=== PATIENT | female | born 1985 | race African-American/Black ===

== ENCOUNTER 2020-02-28 07:53 | Outpatient (CLI) | payer BC ==
--- NOTE | 2020-02-28 10:44 | MRI ---
MRI OF THE LEFT KNEE WITHOUT CONTRAST: INDICATION: History of fall with concern for ACL and lateral collateral ligament injury. COMPARISON: Prior MRI of the left knee dated 01/02/2014. FINDINGS: There is postprocedural change of a prior partial medial meniscectomy and ACL reconstruction. The AC L graft is completely disrupted. The PCL, MCL, and the LCLC and extensor mechanism are intact. There is diffuse chondral thinning involving the femorotibial compartments, medial greater than later al. There is a full-thickness articular cartilage defect involving the central and medial aspect of the medial femoral condyle measuring 6 mm. There are small marginal osteophytes affecting the major compartments. There is now a near full-thickness 1 mm articular cartilage fissure involving the cent ral trochlea. There is a new horizontally oriented tear involving the anterior junction and body of the medial meni scus. There is no discrete evidence of re-tear involving the lateral meniscus. No popliteal cyst is evident. IT band and popliteus appear within normal limits. IMPRESSION: 1. Complete anterior cruciate ligament graft tear. 2. Partial meniscectomy of the medial meniscus with recurrent horizontally oriented tear involving t he anterior junction and body of the medial meniscus. The lateral meniscus appears intact. 3. The LCLC, medial collateral ligament, posterior cruciate ligament, and extensor mechanism are int act. 4. Early secondary mild osteoarthrosis of the left knee. POS: AH
== END 2020-02-28 07:54 | disposition home or self-care (01) ==
LOC: TBSIIMAG 07:53
PROVIDERS: ATTEND Orthopaedic Surgery
DX: S83.512A Sprain of anterior cruciate ligament of left knee, initial encounter (principal); M23.8X2 Other internal derangements of left knee; S83.242A Other tear of medial meniscus, current injury, left knee, initial encounter; M17.12 Unilateral primary osteoarthritis, left knee; Z98.890 Other specified postprocedural states

== ENCOUNTER 2020-04-04 06:36 | Outpatient (CLI) | payer BC ==
[2020-04-04 14:45] LABS: BHCG - Serum Negative (NEGATIVE); Pregs Control Background? CLEAR/WHITE (CLR/WHITE); Pregs Control Bar Appear? YES (CONTROL BAR)
[2020-04-05 07:47] LABS: SARS-CoV-2 MS2 Positive; SARS-CoV-2 N Gene Negative; SARS-CoV-2 S Gene Negative; SARS-CoV-2 by NAA Not Detected (NotDetected); SARS-CoV-2 orf1ab Negative
== END 2020-04-04 06:37 | disposition home or self-care (01) ==
LOC: LABBT 06:36
PROVIDERS: ATTEND Orthopaedic Surgery
DX: Z01.812 Encounter for preprocedural laboratory examination (principal); S83.511A Sprain of anterior cruciate ligament of right knee, initial encounter; S83.421A Sprain of lateral collateral ligament of right knee, initial encounter; S83.206A Unspecified tear of unspecified meniscus, current injury, right knee, initial encounter; Z20.828 Contact with and (suspected) exposure to other viral communicable diseases
CPT/HCPCS: 84703; 87635; U0003

== ENCOUNTER 2020-06-16 05:52 | Inpatient (IN) | payer BC ==
[2020-06-15 10:32] VITALS: BMI 34.4
[2020-06-16] MEDS ORDERED: Lidocaine 1% (PF) 30 ML VIAL ONE (06:49)
[2020-06-16] MEDS ORDERED: Midazolam HCl 2 mg/2 ml Vial ONE (06:49)
[2020-06-16] MEDS ORDERED: Fentanyl 100 MCG/2 ML VIAL ONE ×6 (06:49→13:55)
[2020-06-16] MEDS ORDERED: traMADol HCl 50 MG TAB PO PRN (07:30)
[2020-06-16] MEDS ORDERED: Ropivacaine 0.2% 550 ML 550 ML NERVE BLCK SCH (07:30)
[2020-06-16] MEDS ORDERED: Zolpidem Tartrate 5 MG TAB PO PRN (07:30)
[2020-06-16] MEDS ORDERED: Vancomycin 1.5 GRAM/300 ML BAG ONE ×2 (08:13→13:37)
[2020-06-16] MEDS ORDERED: Ondansetron PF 4 MG/2 ML Vial ONE (09:51)
[2020-06-16] MEDS ORDERED: Bupivacaine HCl 0.5%/Epinephrine 1:200,000/PF 30 ml Vial ONE (09:51)
[2020-06-16] MEDS ORDERED: PHENYLEPHRINE-NS 100 MCG/ML 10 ML SYRINGE ONE (09:51)
[2020-06-16] MEDS ORDERED: Rocuronium Bromide 10 MG/ML (10ML VIAL) ONE (09:51)
[2020-06-16] MEDS ORDERED: ePHEDrine 50 MG/ML VIAL ONE (09:51)
[2020-06-16] MEDS ORDERED: Dexamethasone 20 MG/5 ML VIAL ONE (09:51)
[2020-06-16] MEDS ORDERED: PROPOFOL 200 MG/20 ML VIAL ONE (09:51)
[2020-06-16] MEDS ORDERED: Ketorolac Tromethamine 30 MG/ML VIAL ONE (09:51)
[2020-06-16] MEDS ORDERED: HYDROcodone/Acetaminophen 7.5/325 mg Tablet PO PRN ×2 (10:56)
[2020-06-16] MEDS ORDERED: Bisacodyl 10 MG SUPP PR PRN (10:56)
[2020-06-16] MEDS ORDERED: diphenhydrAMINE 50 MG CAP PO PRN (10:56)
[2020-06-16] MEDS ORDERED: Acetaminophen 500 MG TAB PO PRN (10:56)
[2020-06-16] MEDS ORDERED: Milk Of Magnesia 30 ML UDCUP PO PRN (10:56)
[2020-06-16] MEDS ORDERED: Meperidine HCl/PF 25 MG/ML VIAL ONE (11:20)
[2020-06-16] MEDS ORDERED: Promethazine HCl 25 MG/ML VIAL SLOW IVP PRN (11:38)
[2020-06-16] MEDS ORDERED: Ondansetron HCl/PF 4 MG/2 ML Vial IVP PRN (11:38)
[2020-06-16] MEDS ORDERED: Promethazine HCl 25 MG/ML VIAL IM PRN (11:38)
[2020-06-16] MEDS ORDERED: Meperidine HCl/PF 25 MG/ML VIAL SLOW IVP PRN (11:38)
[2020-06-16] MEDS: Ketorolac Tromethamine 30 MG/ML VIAL IVP SCH ×2 (15:36→15:37)
[2020-06-16] MEDS: Dextrose 5 %-0.45 % NaCl 1,000 ML IV SCH ×2 (15:36→21:14)
[2020-06-16] MEDS: Ondansetron PF 4 MG/2 ML Vial IVP PRN (15:37)
[2020-06-16] MEDS: CEFAZOLIN 2 GM in Premix Bag 1 BAG IVPB SCH (15:37)
[2020-06-16] MEDS: HYDROcodone/Acetaminophen 10/325 mg Tablet PO PRN ×2 (15:44→19:45)
[2020-06-16] MEDS: Promethazine HCl 25 MG/ML VIAL IM PRN (18:22)
[2020-06-16] MEDS: Famotidine 20 MG TAB PO SCH (19:45)
--- NOTE | 2020-06-16 19:53 | OP ---
DATE OF PROCEDURE: 06/16/2020 PREOPERATIVE DIAGNOSES: 1. Left knee failed revision anterior cruciate ligament reconstruction. 2. 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 POSTOPERATIVE DIAGNOSES: 1. Left knee failed revision anterior cruciate ligament reconstruction. 2. 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 3. Grade 2 and 3 chondromalacia, medial femoral condyle. Small area of grade 4 chondromalacia, lateral femoral condyle, and some grade 2 chondromalacia in the central portion of the trochlea. PROCEDURES PERFORMED: 1. Left knee exam under anesthesia. 2. Left knee arthroscopy with arthroscopically-assisted revision, anterior cruciate ligament reconstruction using allograft Achilles tendon. 3. Open reconstruction of fibular collateral ligament using allograft Achilles tendon. 4. Removal of hardware from the femur and tibia. ASSISTANTS: 1. Ford Jordan MD. 2. Michael Abarca PA-C. Dr. Jordan was present throughout the procedure to include the fibular collateral ligament reconstruction, removal of hardware, the revision ACL reconstruction, and closure of wounds. BLOOD LOSS: 100. ANESTHESIA: The patient had general anesthetic as well as a preoperative block. IMPLANTS: A 7 x 20 metal interference screw on the femur for the ACL reconstruction. A 9 x 30 BioComposite interference screw in the tibial tunnel for the ACL reconstruction, bicortical screw with a spiked washer for backup fixation of the ACL. For the fibular collateral ligament reconstruction, we used a 7 x 20 metal interference screw on the femur. We used a 7 x 20 BioComposite interference screw in the fibular head. COMPLICATIONS: There were no complications. DISPOSITION: She did go to recovery room in stable condition. INDICATIONS: Aminah is a 35-year-old female, who has already had two ACL reconstructions and was found on recent MRI scan to have a torn ligament from her second reconstruction as well as chronic fibular collateral ligament tear. At this time, she wished to undergo revision surgery to stabilize the knee. DESCRIPTION OF PROCEDURE: After all appropriate consent forms were explained and signed, she was taken to the operative room and at this time was given general anesthetic. Once the level of anesthesia was appropriate, exam under anesthesia confirmed a positive Vj, also confirmed varus instability in full extension at 30 degrees of flexion. At this time, tourniquet was placed on left thigh. Leg was then placed in arthroscopic leg christie. The limb was then prepped and draped in standard surgical fashion. The limb was exsanguinated and tourniquet was taken to 300 mmHg. We initially went about our lateral dissection, thus a long lateral incision was made down through skin only. Bovie used to clear any brisk venous bleeding. We then swept the skin flap off the underlying IT band to gain access to our deeper tissues. At this time, we found our biceps femoris muscle tendon unit and we then went about trying to find our peroneal nerve. Proximally 2 cm distal to the end of the fibular head, we used scissor dissection and carefully dissected out the peroneal nerve from there proximally. A vascular loop was then placed around this so we could keep track of the nerve throughout the procedure. Once this was done, we then entered our biceps bursa going approximately 1 cm proximal to the insertion of the biceps tendon onto the fibular head. Once this was cut down, we were able to easily find our inferior collateral ligament attachment to the fibular head. A stitch was placed into this. As we pulled on this, there was no movement proximally confirming the MRI finding of torn fibular collateral ligament off the femur. At this time, we then finished dissecting out our fibular head and neck, so that we could gain access for drilling our fibular tunnel. Once we gained access anteriorly with removal of the soft tissue. We then went posterior going between our lateral gastrocs and her tibia. We also then swept soft tissue off the backside of the fibula using a periosteal elevator. Once we were able to do this, the retractor from the Arthrex collateral ligaments was placed to protect our nerve and posterior tissues and the guide to perform our fibular tunnel was applied. The tunnel length was just over 25 mm. We then drilled our guide pin, reamed over top of this with a 7 mm reamer. All loose bony debris was removed at this time. We then did find our lateral epicondyle and split our IT band right over top of this, so we do not have any difficulty in visualizing our anatomic origin of the fibular collateral ligament. At this time, we did not do any tunnel drilling for the femur as we wanted to perform our arthroscopy. At this time, we then turned our attention to the previous tibial incision. The 10 blade was used to incise down through skin. Bovie used to clear any brisk venous bleeding. We then got down to the soft tissue and easily found our tibial interference screw. This was removed without complication. The previously placed Tycron sutures were also removed at this time without complication. At this time, we then started to perform our arthroscopy. Inferolateral portal was established. Scope was placed into the knee joint. A needle localization technique was then used to make our medial working portal and once this was done, diagnostic arthroscopy commenced in the notch. There really was no significant ACL at all as it had gone away indicating this is fairly chronic in nature. PCL was intact. There were some chronic calcified tissues on the small stump of a previous graft on the femur, calcified tissue was removed with the shaver and a grasper. At this time, we used the [employer] energy as well as the shaver to remove any soft tissue off our lateral wall, but we could find our previously placed screws. We did perform repeat notchplasty. At this time, we then also had unroof some of the bone to get access to our screws to remove them. Angled chisel was removed used to remove the bone. Shaver was used to gain access and cleaned out this area. A guidewire was placed into the screws and they were removed sequentially. Again, both metal interference screws removed from the femur. At this time, we had no more remaining hardware in the knee. We then turned our attention to the remaining knee scope. Medial compartment was evaluated. There was loose chondral flaps on the medial femoral condyle. An area just over a centimeter in diameter, this had some grade 2 and 3 changes. Previous partial medial meniscectomy was noted. There was a small ride in the meniscus left. The medial tibial plateau overall was in pretty good condition. No further meniscectomy was needed. Lateral compartment was evaluated and really at this time, the lateral meniscus was found to be intact. There was no significant tearing noted as the MRI suggested. Popliteus tendon was intact. There was a fissure in the lateral tibial plateau that did not require any treatment. The lateral femoral condyle had what appeared to be a previous grade 4 lesion that had healed with some fibrocartilage in scar tissue, but no further treatment was needed. Gutters were swept through no loose bodies were noted. The patellofemoral joint found the patella to be in good condition. The trochlea did have some grade 2 changes in the central aspect with no treatment was needed. At this time, we then turned our attention to performing our ACL reconstruction. Our initial plan was to use the outside in guide to drill fully through the knee and then fixate on the lateral wall with our previous two screws have been placed from the inside. In placing this guide, became apparent that we would not be able to drill an area that would not sacrifice or anatomic origin for a fibular collateral ligament and therefore, we reverted back to drilling through the medial portal from inside out. The knee was flexed up. An [id number] guide was placed. A pin was placed up and out the anterolateral thigh. A 10 mm reamer was then used to ream our tunnel just over 20 mm and at this time, all loose bony cartilaginous debris was removed from the knee joint. This was a perfectly solid tunnel with no soft tissue in it. At this time, we then turned our attention to drilling our tibial tunnel. A tibial guide was placed into the knee joint at 55 degrees. Pin was placed up into the knee joint. All soft tissue was removed from around the pin as it entered the tibia and at this time, a 10 mm reamer was used to ream our tibial tunnel. Again all loose bony cartilaginous debris was removed from the knee joint. At this time, a 10 mm dilation device was placed in both the femoral and tibial tunnels to dilate our bone and compact our bone, make nice hard tunnels. Once this was done, we then went dry. We then flexed the knee, placed our pin up and out the anterolateral thigh one more time, pulling our passing suture into the knee joint. This was pulled down in our tibial tunnel and used to pull our graft into place. A 7 x 20 metal interference screw was then used to fixate our femoral sided plug. We did not fixate the tibia at this time. Instead, we went laterally and turned our attention to performing our fibular collateral ligament reconstruction. At this time, we found our previously noted anatomic origin off the femur. We then removed any soft tissue off this. We then placed our guide for drilling this tunnel and aim so that our pin went proximal and anterior to our adductor tubercle. The pin was placed all the way through the femur. We then used a 9 mm reamer to ream our femur tunnel to a depth of just over 20. All loose debris was removed from this area. We then placed the strings that had been tied through our femoral plug through the Beath pin and pulled this out medially, pulling our strength medially. This was then used to guide our bone plug into the femoral socket. A 7 x 20 metal interference screw was then used to fixate our femoral plug. Once this was done, a tonsil was used to go underneath the IT band in the direction of the bill moore's slough fibular collateral ligament. Our graft was pulled down underneath the IT band and we then placed a passing suture to then pull our graft from anterolateral to posterior medial, recreating the fibular collateral ligament. Pulling this spot and having the knee in approximately 20 degrees of flexion and varus stress being applied. We then placed our 7 x 23 BioComposite interference screw in our fibular neck finishing the fixation of our fibular collateral ligament. Excess tissue was brought back underneath the IT band and sewed to itself proximally along the length of the fibular collateral ligament. Excess tissue was then removed. Again, there was no need for popliteus reconstruction as the popliteus tendon was found to be normal both on MRI scan as well as on the scope. At this time, we then turned our attention back to the tibial fixation for ACL going into full extension, we then placed our 9 x 30 mm BioComposite screw up our tibial tunnel while pulling tension on our graft with the posterior drawer being applied and again the knee being in full extension. This was a primary fixation. We then drilled and tapped a hole in the tibia, followed by placing a bicortical screw with a soft tissue washer through the Achilles allograft tendon backing up our primary fixation at this time. Excess graft was removed. We then took our knee through full range of motion, making sure we had full extension and full flexion without any impingement of our graft against the bony notch or the PCL and again we then also made sure that we did not have any limitation of motion secondary to the fibular collateral ligament reconstruction. Varus stress at zero and 30 degrees have been restored to normality after this reconstruction. At this time, we were 2 hours and 4 minutes in the tourniquet time and moist lap sponges were placed into our wound and the tourniquet was let down. Brisk venous bleeding was then coagulated. We then thoroughly irrigated out of the wounds, went about closing our incisions. Our tibial incision deep Vicryl followed by 2-0 Vicryl and Prolene sutures were used to close skin. All portals were closed with simple stitches and our large incision laterally was closed in multiple layers. The IT band was closed with a running Vicryl suture. We then did reapproximate the tissue that we had sharply taken off the fibular head and neck using again multiple interrupted Vicryl sutures to reattach this. We then one more time evaluated our peroneal nerve to make sure there was zero tension on it and was completely intact and the vascular loop was then removed at this time. We then thoroughly irrigated and dried one more time. We then placed some deep 0 Vicryl sutures to reapproximate our deep tissue, followed by 2-0 Vicryl and surgical irvin on the skin. A bulky sterile dressing was then applied to the left lower extremity. The patient was then awakened and taken to recovery room in stable condition. All counts were correct at the end of the case and she did receive preoperative IV antibiotics. Job ID: [id number]
[2020-06-16] MEDS: Vancomycin 1.5 GM in Premix Bag 1 BAG IVPB SCH (21:56)
[2020-06-16] MEDS: Methocarbamol 500 MG TAB PO PRN (21:56)
[2020-06-17] MEDS: CEFAZOLIN 2 GM in Premix Bag 1 BAG IVPB SCH
[2020-06-17] MEDS: traMADol HCl 50 MG TAB PO PRN (03:06)
[2020-06-17] MEDS: Methocarbamol 500 MG TAB PO PRN (03:06)
[2020-06-17] MEDS: Ketorolac Tromethamine 30 MG/ML VIAL IVP SCH ×5 (05:16→23:18)
[2020-06-17] MEDS: HYDROcodone/Acetaminophen 10/325 mg Tablet PO PRN ×4 (05:47→20:43)
[2020-06-17] MEDS: Fentanyl 100 MCG/2 ML VIAL IV PRN ×3 (07:45→18:23)
[2020-06-17] MEDS: Famotidine 20 MG TAB PO SCH ×2 (08:28→20:43)
[2020-06-17] MEDS ORDERED: LEVONORGESTREL PO SCH (09:00)
[2020-06-17] MEDS: Vancomycin 1.5 GM in Premix Bag 1 BAG IVPB SCH (10:13)
[2020-06-17] MEDS: Dextrose 5 %-0.45 % NaCl 1,000 ML IV SCH (17:17)
[2020-06-18] MEDS: HYDROcodone/Acetaminophen 10/325 mg Tablet PO PRN ×4 (02:41→23:34)
[2020-06-18] MEDS: Dextrose 5 %-0.45 % NaCl 1,000 ML IV SCH ×3 (02:43→23:33)
[2020-06-18] MEDS: Ketorolac Tromethamine 30 MG/ML VIAL IVP SCH (05:08)
[2020-06-18] MEDS: Fentanyl 100 MCG/2 ML VIAL IV PRN ×2 (05:15→18:26)
[2020-06-18] MEDS: Methocarbamol 500 MG TAB PO PRN ×2 (08:36→16:39)
[2020-06-18] MEDS: Famotidine 20 MG TAB PO SCH ×2 (08:36→20:38)
[2020-06-18] MEDS: Promethazine HCl 25 MG/ML VIAL IM PRN (09:34)
[2020-06-18] MEDS ORDERED: Lactated Ringer's 1,000 ML IV SCH (10:30)
[2020-06-18] MEDS: Ondansetron PF 4 MG/2 ML Vial IVP PRN (11:09)
[2020-06-18] MEDS: traMADol HCl 50 MG TAB PO PRN ×2 (12:04→20:38)
[2020-06-19] MEDS: HYDROcodone/Acetaminophen 10/325 mg Tablet PO PRN ×4 (05:43→19:59)
[2020-06-19] MEDS: Dextrose 5 %-0.45 % NaCl 1,000 ML IV SCH ×2 (08:14→20:03)
[2020-06-19] MEDS: Famotidine 20 MG TAB PO SCH ×2 (08:29→19:58)
[2020-06-19] MEDS: traMADol HCl 50 MG TAB PO PRN (23:17)
[2020-06-20] MEDS: HYDROcodone/Acetaminophen 10/325 mg Tablet PO PRN ×2 (00:56→06:35)
[2020-06-20] MEDS: Dextrose 5 %-0.45 % NaCl 1,000 ML IV SCH (05:26)
[2020-06-20 07:55] VITALS: BP 121/75; TEMP 97.9
== END 2020-06-20 09:24 | disposition home or self-care (01) | DRG 489 ==
LOC: SDC 05:52 → OBSVTOIN 10:56 → SURG A 10:56
PROVIDERS: ADMIT Orthopaedic Surgery; ATTEND Orthopaedic Surgery
PROC: 0MRP0KZ Replacement of Left Knee Bursa and Ligament with Nonautologous Tissue Substitute, Open Approach (ICD-10-PCS; principal; 2020-06-16)
PROC: 0SJD4ZZ Inspection of Left Knee Joint, Percutaneous Endoscopic Approach (ICD-10-PCS; 2020-06-16)
PROC: 0SPD04Z Removal of Internal Fixation Device from Left Knee Joint, Open Approach (ICD-10-PCS; 2020-06-16)
DX: T84.093A Other mechanical complication of internal left knee prosthesis, initial encounter (principal); S83.422A Sprain of lateral collateral ligament of left knee, initial encounter; Y83.1 Surgical operation with implant of artificial internal device as the cause of abnormal reaction of the patient, or of later complication, without mention of misadventure at the time of the procedure; M94.28 Chondromalacia, other site; F32.9 Major depressive disorder, single episode, unspecified; I10 Essential (primary) hypertension
CPT/HCPCS: 36416; 96365; 96366; 96367; 96372; 96375; 96376; A4306; C1713; G0378; J0690; J1100; J1885; J2001; J2175; J2250; J2405; J2550; J2704; J2795; J3010; J3370; J3490